=== PATIENT | male | born 1980 ===

== ENCOUNTER 2022-07-29 07:00 | Outpatient (CLI) | payer MEDICAID ==
--- NOTE | 2022-07-29 16:41 | XRAY Report ---
PROCEDURE: Chest 2 View X-Ray INDICATIONS: ACUTE COUGH TECHNIQUE: 2 views of the chest were acquired. COMPARISON: None. FINDINGS: Surgical changes and devices: None. Lungs and pleura: No pleural effusions or pneumothorax. Lungs are clear. Mediastinum: Mediastinal contours appear normal. Heart size is normal. Bones and chest wall: No suspicious bony lesions. Overlying soft tissues appear unremarkable. IMPRESSION: No acute cardiopulmonary disease process. Reviewed by: Sylvia Sultana MD, PhD on 07/29/2022 4:40 PM PDT Approved by: Sylvia Sultana MD, PhD on 07/29/2022 4:40 PM PDT Station ID: [id number]
== END 2022-07-29 23:59 | disposition home or self-care (01) ==
LOC: DI.S 07:00
PROVIDERS: ATTEND Registered Nurse
DX: R06.2 Wheezing (principal); R05.1 Acute cough